=== PATIENT | female | born 1980 | race Caucasian/White ===

== ENCOUNTER 2020-01-30 | Outpatient (CLI) | payer OTHER | END 2020-01-30 10:01 | disposition home or self-care (01) | DX: Z01.818 Encounter for other preprocedural examination (principal); E66.01 Morbid (severe) obesity due to excess calories ==

== ENCOUNTER 2020-02-06 11:30 | Inpatient (IN) | payer OTHER ==
[2020-02-24 12:56] VITALS: BMI 37.4
[2020-02-29] MEDS ORDERED: Scopolamine 1.5 mg/72 hour Patch ONE (06:24)
[2020-02-29] MEDS ORDERED: Acetaminophen 500 MG TAB ONE (06:24)
[2020-02-29] MEDS ORDERED: Ketorolac Tromethamine 30 MG/ML VIAL ONE (06:24)
[2020-02-29] MEDS ORDERED: Heparin 5,000 UNITS/ML VIAL ONE (06:24)
[2020-02-29] MEDS ORDERED: Fentanyl 100 MCG/2 ML VIAL ONE (06:27)
[2020-02-29] MEDS ORDERED: Lidocaine 1% w/Epinephrine 1:100K 20 ML VIAL ONE (06:45)
[2020-02-29] MEDS ORDERED: Bupivacaine PF 0.5% 30 ML VIAL ONE (06:45)
[2020-02-29] MEDS ORDERED: Midazolam HCl 2 mg/2 ml Vial ONE (07:09)
[2020-02-29] MEDS ORDERED: Famotidine/PF 20 mg/2ml Vial ONE (07:09)
[2020-02-29] MEDS ORDERED: Ondansetron HCl/PF 4 MG/2 ML Vial IVP PRN (08:47)
[2020-02-29] MEDS ORDERED: HYDROmorphone 2 MG/ML VIAL SLOW IVP PRN (08:47)
[2020-02-29] MEDS ORDERED: Promethazine HCl 25 MG/ML VIAL SLOW IVP PRN (08:47)
[2020-02-29] MEDS ORDERED: Meperidine HCl/PF 25 MG/ML VIAL SLOW IVP PRN (08:47)
[2020-02-29] MEDS ORDERED: Promethazine HCl 25 MG/ML VIAL IM PRN (08:47)
[2020-02-29] MEDS ORDERED: Morphine 4 MG/ML VIAL SLOW IVP PRN (08:53)
[2020-02-29] MEDS ORDERED: diphenhydrAMINE 50 MG/ML VIAL IVP PRN (08:53)
[2020-02-29] MEDS ORDERED: Hydrocodone-Acetamin 15 ML UDCUP PO PRN (08:53)
[2020-02-29] MEDS ORDERED: Morphine 2 MG/ML SYRINGE SLOW IVP PRN (08:53)
[2020-02-29] MEDS ORDERED: hydrALAZINE 20 MG/ML VIAL SLOW IVP PRN (08:53)
[2020-02-29] MEDS ORDERED: Ondansetron PF 4 MG/2 ML Vial IVP PRN ×2 (08:53→08:58)
[2020-02-29] MEDS ORDERED: Ondansetron ODT 8 MG TAB PO PRN (08:58)
[2020-02-29] MEDS ORDERED: Ondansetron ODT 4 MG TAB PO PRN (08:58)
[2020-02-29] MEDS ORDERED: Ondansetron ODT 8 MG TAB SL PRN (08:58)
[2020-02-29] MEDS ORDERED: traMADol HCl 50 MG TAB PO PRN ×2 (08:58)
[2020-02-29] MEDS ORDERED: Ondansetron ORAL SOLN. 4 MG/5 ML UDCUP PO PRN (08:58)
[2020-02-29] MEDS ORDERED: Promethazine HCl 25 MG/ML VIAL ONE (09:07)
--- NOTE | 2020-02-29 09:50 | OP ---
DATE OF PROCEDURE: 02/29/2020 PREOPERATIVE DIAGNOSES: Morbid obesity, 36 BMI, 243 pounds, hypertension. PROCEDURE PERFORMED: Laparoscopic sleeve gastrectomy, 36-Z[place]ian bougie, staple line within 4 cm of pylorus, hemoclips used for hemostasis, completion upper endoscopy, visualizing the pylorus, no restriction. Noted normal liver. Normal abdominal cavity grossly. ANESTHESIA: General, local 0.25% Marcaine 60 mL mixed with 1% Xylocaine with epinephrine 20 mL. DESCRIPTION OF PROCEDURE: The patient was taken to the operating room where under general anesthesia, abdomen was prepared with ChloraPrep and draped in routine fashion. Local anesthetic was infiltrated into the skin and subcutaneous tissue about each port site. A supraumbilical incision was made and pneumoperitoneum to 15 mmHg obtained with a Veress needle, replaced with a 5 port and video laparoscope inserted. Bilateral upper abdominal midclavicular incision was made and a 12 port placed on the left and 11 port on the right. Bilateral far lateral subcostal incision was made and a 5 port was placed. Subxiphoid incision was made and under laparoscopic visualization, a Simi liver retractor placed reflecting the left lobe of the liver, held in place with a [place] retractor. The patient was placed in reverse Trendelenburg. Stomach deflated with orogastric tube, which was then removed. Gastrocolic ligament taken down beginning at the distal greater curvature of the stomach adjacent to the stomach using the ligature as an energy source. This was carried out mobilizing the stomach up to the angle of His. Stomach was completely mobilized. Spleen was not injured. Dissection was carried down to within 3 to 4 cm of the pylorus and initial fire of the stapler performed after placing 36 bougie orally, visualized laparoscopically positioned in the distal stomach along the lesser curvature. Once initial staple line was fired taking care to avoid encroachment on the incisura, a gold fire stapler performed and serial blue load fire stapler performed, taking care to not encroach on the bougie and overly tighten the sleeve, staple line carried up towards the angle of His leaving adequate fundus adjacent to the esophagus to avoid encroaching on it. Staple line hemostasis gained with clips. Good hemostasis noted. Stomach removed through the 15 mm port left upper quadrant and 0 Vicryl GraNee needle was used to close this single stitch. Completion endoscopy performed, placing endoscope per os under direct visualization and using air insufflation, passed throughout the esophagus to the gastric sleeve, visualizing the pylorus, removing the staple line, and appreciated good hemostasis and there was no restriction. Esophagus was normal. Stomach was deflated. Attention was then turned to the abdominal field and new gloves and gowns applied and Simi liver retractor removed. Irrigant and pneumoperitoneum evacuated, noting good hemostasis and all skin incisions were approximated with interrupted subdermal 4-0 Monocryl and [place] glue applied. Job ID: [id number]
[2020-02-29] MEDS ORDERED: EPHEDRINE 25 MG/5 ML SYRINGE ONE (10:02)
[2020-02-29] MEDS ORDERED: Dexamethasone 20 MG/5 ML VIAL ONE (10:02)
[2020-02-29] MEDS ORDERED: PROPOFOL 200 MG/20 ML VIAL ONE (10:02)
[2020-02-29] MEDS ORDERED: Ondansetron PF 4 MG/2 ML Vial ONE (10:02)
[2020-02-29] MEDS ORDERED: Rocuronium Bromide 10 MG/ML (10ML VIAL) ONE (10:02)
[2020-02-29] MEDS ORDERED: Lidocaine 1% PF 5 ML VIAL ONE (10:02)
[2020-02-29] MEDS ORDERED: Glycopyrrolate 0.2 MG/ML 5 ML SYRINGE ONE (10:02)
[2020-02-29] MEDS: D5 1/2 NS w/20 mEq KCL 1,000 ML IV SCH ×3 (10:10→23:26)
[2020-02-29] MEDS: Aspirin 81 mg Enteric Coated Tablet PO SCH (11:24)
[2020-02-29] MEDS: Pantoprazole 40 MG VIAL IVP SCH (11:24)
[2020-02-29] MEDS: Escitalopram Oxalate 10 mg Tablet PO SCH (11:24)
[2020-02-29] MEDS: Ketorolac Tromethamine 30 MG/ML VIAL IVP SCH ×3 (12:35→23:25)
--- NOTE | 2020-02-29 18:26 | EKG ---
Test Reason : PREOP Blood Pressure : / mmHG Vent. Rate : 072 BPM Atrial Rate : 072 BPM P-R Int : 146 ms QRS Dur : 088 ms QT Int : 410 ms P-R-T Axes : 019 042 011 degrees QTc Int : 448 ms Normal sinus rhythm Normal ECG No previous ECGs available Confirmed by JUDITH GÓMEZ (2) on 02/29/2020 6:26:03 PM Referred By: LIZANDRO Confirmed By:JUDITH GÓMEZ
[2020-02-29] MEDS ORDERED: Enoxaparin Sodium 40 MG/0.4 ML SYRINGE SC SCH (21:00)
[2020-02-29] MEDS ORDERED: Lisinopril 5 MG TAB PO SCH (21:00)
[2020-03-01] MEDS: Ketorolac Tromethamine 30 MG/ML VIAL IVP SCH ×2 (04:55→12:08)
[2020-03-01 06:32] LABS: Anion Gap 10 mmol/L (10-20); BUN (Urea Nitrogen) 5 mg/dL (7.0-18.7); Calc. Creatinine Clearance 181 mL/min (70-130); Calcium 8.8 mg/dL (7.8-10.44); Carbon Dioxide 23 mmol/L (22-29); Chloride 109 mmol/L (98-107); Estimated GFR-MDRD 89; Glucose 115 mg/dL (70-105); Potassium 4.1 mmol/L (3.5-5.1); Sodium 138 mmol/L (136-145)
[2020-03-01] MEDS: Aspirin 81 mg Enteric Coated Tablet PO SCH (10:33)
[2020-03-01] MEDS: Escitalopram Oxalate 10 mg Tablet PO SCH (10:33)
[2020-03-01] MEDS: Pantoprazole 40 MG VIAL IVP SCH (10:34)
[2020-03-01] MEDS: D5 1/2 NS w/20 mEq KCL 1,000 ML IV SCH (10:36)
[2020-03-01 11:39] VITALS: BP 111/76; TEMP 98.1
--- NOTE | 2020-03-01 19:33 | DIS ---
DATE OF ADMISSION: 02/29/2020 DATE OF DISCHARGE: 03/01/2020 DISCHARGE DIAGNOSES: Morbid obesity, hypertension. PROCEDURES: Laparoscopic sleeve gastrectomy. HISTORY: A 39-year-old female, who underwent our bariatric preoperative program, found to be a good candidate, admitted on the day of surgery after laparoscopic sleeve gastrectomy over a 36-[place]ian bougie with a completion endoscopy. Postoperatively, she tolerated her diet and was discharged home on bariatric diet advancement protocol. She did not require any analgesics for discharge, although given a prescription for Ultram, Zofran, and Lortab elixir if needed; however, she did not feel that she would need these. She is to follow up in my office in 1 to 2 weeks and call sooner for any problems. Job ID: [id number]
== END 2020-03-01 14:05 | disposition home or self-care (01) | DRG 620 ==
LOC: SURG A 02-29 05:48 → SURG B 02-29 10:04
PROVIDERS: ADMIT Specialist; ATTEND Specialist
PROC: 0DB64Z3 Excision of Stomach, Percutaneous Endoscopic Approach, Vertical (ICD-10-PCS; principal; 2020-02-29)
PROC: 0DJ08ZZ Inspection of Upper Intestinal Tract, Via Natural or Artificial Opening Endoscopic (ICD-10-PCS; 2020-02-29)
DX: E66.01 Morbid (severe) obesity due to excess calories (principal); D68.51 Activated protein C resistance; I10 Essential (primary) hypertension; Z68.41 Body mass index [BMI] 40.0-44.9, adult; Z91.012 Allergy to eggs
CPT/HCPCS: 36415; 80048; 88307; 88312; 93005; 93010; C9113; J0694; J1100; J1644; J1650; J1885; J2001; J2250; J2405; J2550; J2704; J3010; J3480; S0020; S0028

== ENCOUNTER 2020-02-27 07:14 | Outpatient (CLI) | payer OTHER ==
[2020-02-27 18:09] LABS: BHCG - Serum Negative (NEGATIVE); Pregs Control Background? CLEAR/WHITE (CLR/WHITE); Pregs Control Bar Appear? YES (CONTROL BAR)
[2020-02-28 12:19] LABS: SARS-CoV-2 MS2 Positive; SARS-CoV-2 N Gene Negative; SARS-CoV-2 S Gene Negative; SARS-CoV-2 orf1ab Negative
== END 2020-02-27 07:15 | disposition home or self-care (01) ==
LOC: LABBT 07:14
PROVIDERS: ATTEND Specialist
DX: Z01.818 Encounter for other preprocedural examination (principal); Z11.59 Encounter for screening for other viral diseases; E66.01 Morbid (severe) obesity due to excess calories; Z68.36 Body mass index [BMI] 36.0-36.9, adult; I10 Essential (primary) hypertension; D68.51 Activated protein C resistance; G93.2 Benign intracranial hypertension
CPT/HCPCS: 84703; 87635; U0003